=== PATIENT | female | born 1995 | race African-American/Black ===

== ENCOUNTER 2016-08-19 20:53 | Emergency (ER) | payer OTHER ==
[~2016-08-19] VITALS: Ht 162.6 cm; Wt 66.0 kg
[~2016-08-19 20:53] MED LIST: ETON1IMP I-DERMAL; PREN1CAP20 PO
[2016-08-19 20:57] VITALS: BP 124/73; PULSE 108; RESP 16; TEMP 100.4; O2SAT 97
== END 2016-08-20 00:05 | disposition left against medical advice (07) ==
LOC: NED 20:53
DX: R52 Pain, unspecified (principal)
CPT/HCPCS: 99281

== ENCOUNTER 2016-09-09 05:52 | Emergency (ER) | payer OTHER ==
[~2016-09-09] VITALS: Ht 167.6 cm; Wt 88.0 kg
[2016-09-09 05:55] VITALS: BP 132/75; PULSE 92; RESP 20; TEMP 98.2; O2SAT 99
--- NOTE | 2016-09-09 06:39 | RADRPT ---
EXAM DATE/TIME: 09/09/2016 06:19 [facility] COMPARISON: HAND RIGHT COMPLETE ([id number]), January 01, 2015, 23:17. INDICATIONS : Laceration to thumb last night- unknown injury. MEDICAL HISTORY : None. SURGICAL HISTORY : None. ENCOUNTER: Initial ACUITY: 1 day PAIN SCORE: 7/10 LOCATION: Right Hand FINDINGS: Bone density is normal. Joint space widths are intact. No foreign bodies, fracture or dislocation. Th ere is soft tissue swelling of the first digit at the level of the interphalangeal joint with lacerat ion at this level. CONCLUSION: Soft tissue injury. No fracture or dislocation. Willy Kerr MD on September 09, 2016 at 6:37 Board Certified Radiologist. This report was verified electronically.
--- NOTE | 2016-09-09 06:44 | PD ---
HPI Chief Complaint: Laceration/Skin Injury Time Seen by Provider: 06:42 Travel History International Travel<30 days: No Contact w/Intl Traveler<30days: No Traveled to known affect area: No History of Present Illness HPI 20-year-old [id number] black female presents to emergency department with a laceration to her right hand. She states that she had hunched a mirror in anger last evening around 11:00 last evening. The patient states that she did not feel that she had a significant injury and went to bed. States that she woke up this morning and felt that the wound was more significant in that she had bleeding from the wound. She complains of tingling around the wound but nothing in the distal fingers. She is up-to-date with immunizations. She denies any weakness. No other injury. She denies any suicidal or homicidal ideation PFSH Past Medical History Medical History: Denies Significant Hx Hx Anticoagulant Therapy: No Cardiovascular Problems: No Chemotherapy: No Cerebrovascular Accident: No Developmental Delay: No Diabetes: No Diminished Hearing: No Respiratory: No Immunizations Current: Yes Tetanus Vaccination: < 5 Years ?: Not LMP: unsure : 1 Para: 1 Past Surgical History Surgical History: No Previous Surgery Hysterectomy: No Social History Alcohol Use: No Tobacco Use: No Substance Use: No Allergies-Medications (Allergen,Severity, Reaction): Coded Allergies: No Known Allergies (Verified , 09/09/16) Reported Meds & Prescriptions Reported Meds & Active Scripts Active Nexplanon Implant (Etonogestrel Implant) 68 Mg Imp 68 Mg I-DERMAL ONCE Review of Systems Except as stated in HPI: all other systems reviewed are Neg Physical Exam Narrative GENERAL: This is a well-nourished, well-developed patient, in no apparent distress. SKIN: No rashes, ecchymoses or lesions. Warm and dry. HEAD: Atraumatic. Normocephalic. EYES: PERRL, EOMI, no discharge or injection. No scleral icterus. EARS: Clear NOSE: Nasal turbinates appear normal. THROAT: Mucosa pink and moist. Airway patent. NECK: Trachea midline. supple, moves head freely. LUNGS: Clear to auscultation. CV: Regular in rhythm. ABDOMEN: Soft nontender. EXT: No clubbing cyanosis or edema. Examination of the right hand reveals superficial cuts across the dorsum of the hand and fingers. Patient has a irregular avulsion type laceration to the radial aspect of the thumb by the IP joint. Laceration measures approximately 1.5 cm. The patient has intact sensation. She is able to fully extend and flex her thumb. She has intact capillary refill and sensation distally. Data Data Last Documented VS Vital Signs Date Time Temp Pulse Resp B/P Pulse Ox O2 Delivery O2 Flow Rate FiO2 09/09/16 05:55 98.2 92 20 132/75 99 Orders Hand, Complete ([id number]) (09/09/16 06:13) [facility] Medical Decision Making Medical Screen Exam Complete: Yes Emergency Medical Condition: Yes Medical Record Reviewed: Yes Interpretation(s) Right hand: Negative for acute foreign body. No fracture. Differential Diagnosis MDM: High Differential diagnoses: Fracture, sprain, strain, dislocation, contusion, neurovascular injury Narrative Course Patient's wound has been anesthetized, cleansed area and the laceration is a superficial flap with multiple jagged edges. The patient's wound has been dressed by the nursing staff. Sutures are not indicated. She is advised to keep the dressing on it clean and dry for the next 3 days and perform local wound care thereafter. This is right thumb laceration-nonsutured Procedures Procedure Narrative Wound evaluation right thumb: The right thumb is prepped and draped in usual sterile fashion using Betadine. Patient is given a digital block with 1% lidocaine to the right thumb. The wound is copiously irrigated with normal saline. The depths of the wound are evaluated and do not appear to enter the tendon or joint. This appears to be more superficial with a 1.5 cm jagged flap laceration. The skin edges are very irregular and jagged. Sutures not indicated. Neosporin and nonadherent dressing applied. Patient tolerated the procedure well. No complications. Diagnosis Primary Impression: right thumb laceration-nonsutured Patient Instructions: General Instructions Additional Instructions: Rest. Elevation above the heart at all times. Keep clean and dry. 3 Advil every 6 hours as needed for pain. Keep your dressing on for the next 3 days then perform local wound care with soap, water, Neosporin. Follow-up with a primary care doctor in the next 3-5 days for recheck. Return to the ER if any problems. Med/Other Pt SpecificInfo: Wound Care Disposition: 01 DISCHARGE HOME Condition: Stable Ashwin Gallegos Sep 09, 2016 06:44
== END 2016-09-09 06:56 | disposition home or self-care (01) ==
LOC: NEPD 05:52
DX: S61.011A Laceration without foreign body of right thumb without damage to nail, initial encounter (principal); W25.XXXA Contact with sharp glass, initial encounter
CPT/HCPCS: 64450; 73130

== ENCOUNTER 2017-07-01 08:39 | Emergency (ER) | payer OTHER ==
[~2017-07-01 08:39] MED LIST changes: -PREN1CAP20 PO
[2017-07-01 08:40] VITALS: BP 131/70; PULSE 94; RESP 18; TEMP 98.2; O2SAT 95
[2017-07-01] MEDS ORDERED: PRED10PA PO (09:04)
--- NOTE | 2017-07-01 09:07 | PD ---
HPI Chief Complaint: Skin Problem Time Seen by Provider: 09:03 Travel History International Travel<30 days: Yes Contact w/Intl Traveler<30days: Yes Name of Country Traveled to: [place] Traveled to known affect area: No History of Present Illness HPI This is a 21-year-old female who presents for evaluation of a pruritic rash. Symptoms started yesterday. The rashes the worst on the proximal right arm and on the back but is also present on the proximal thighs and stomach. She reports that she traveled to [place] recently, returning 1 week ago. Denies any new medications, creams, lotions, detergents, sore throat, fevers or chills. No other sick contacts. No other complaints. PFSH Past Medical History Medical History: Denies Significant Hx Hx Anticoagulant Therapy: No Cardiovascular Problems: No Chemotherapy: No Cerebrovascular Accident: No Developmental Delay: No Diabetes: No Diminished Hearing: No Respiratory: No Immunizations Current: Yes Tetanus Vaccination: < 5 Years ?: Not : 1 Para: 1 Past Surgical History Surgical History: No Previous Surgery Hysterectomy: No Social History Alcohol Use: No Tobacco Use: No Substance Use: No Allergies-Medications (Allergen,Severity, Reaction): Coded Allergies: No Known Allergies (Verified Adverse Reaction, Unknown, 07/01/17) Reported Meds & Prescriptions Reported Meds & Active Scripts Active Prednisone (21) 10 mg tab Dose Pack (Prednisone) 10 Mg Pack 10 Mg PO DIRECTED Nexplanon Implant (Etonogestrel Implant) 68 Mg Imp 68 Mg I-DERMAL ONCE Review of Systems Except as stated in HPI: all other systems reviewed are Neg Physical Exam Narrative GENERAL: Well-developed well-nourished female no acute distress SKIN: Warm and dry. There is a widespread papular rash noted primarily on the torso. It seems to involve the proximal extremities as well. No vesicles, no pustules, no purpura, no petechiae, no erythema or wheals. HEAD: Atraumatic. Normocephalic. EYES: Pupils equal and round. No scleral icterus. No injection or drainage. ENT: No nasal bleeding or discharge. Mucous membranes pink and moist. No oral pharyngeal erythema or exudate. NECK: Trachea midline. No JVD. No lymphadenopathy CARDIOVASCULAR: Regular rate and rhythm. No murmur appreciated. RESPIRATORY: No accessory muscle use. Clear to auscultation. Breath sounds equal bilaterally. GASTROINTESTINAL: Abdomen soft, non-tender, nondistended. Hepatic and splenic margins not palpable. MUSCULOSKELETAL: No obvious deformities. No clubbing. No cyanosis. No edema. NEUROLOGICAL: Awake and alert. No obvious cranial nerve deficits. Motor grossly within normal limits. Normal speech. PSYCHIATRIC: Appropriate mood and affect; insight and judgment normal. Data Data Last Documented VS Vital Signs Date Time Temp Pulse Resp B/P (MAP) Pulse Ox O2 Delivery O2 Flow Rate FiO2 07/01/17 08:40 98.2 94 18 131/70 (90) 95 MDM Medical Decision Making Medical Screen Exam Complete: Yes Emergency Medical Condition: Yes Medical Record Reviewed: Yes Differential Diagnosis Contact dermatitis, pityriasis rosea, viral exanthem, morbilliform reaction, scarlet fever, fixed drug eruption, hives Narrative Course 21-year-old female presents with 1 day history of nonspecific pruritic papular rash which mostly involves the torso and seems to involve the proximal extremities as well. She will be treated symptomatically with a short course of steroids and oral H1 antihistamines. Diagnosis Primary Impression: Pruritic rash Additional Instructions: Medication as prescribed. Benadryl every 6 hours for itching. Avoid scratching. Follow-up with primary care physician as needed. Return for any emergent medical conditions. Med/Other Pt SpecificInfo: Prescription(s) given Scripts Prednisone (21) 10 mg tab Dose Pack (Prednisone (21) 10 mg tab Dose Pack) 10 Mg Pack 10 MG PO DIRECTED for Inflammation, #1 DSPK 0 Refills Prov: Gene Dumont MD 07/01/17 Disposition: 01 DISCHARGE HOME Condition: Stable Mike Alejandro July 01, 2017 09:07
== END 2017-07-01 09:14 | disposition home or self-care (01) ==
LOC: NEPD 08:39
DX: L29.9 Pruritus, unspecified (principal)
CPT/HCPCS: 99283